=== PATIENT | female | born 1935 | race Caucasian/White ===

== ENCOUNTER 2017-05-04 08:19 | Inpatient (IN) | payer MEDICARE, BC ==
[2017-05-04] MEDS: NS 0.9% 1000 ML* 2,000 ML IV ONE ×2 (09:44→11:05)
--- NOTE | 2017-05-04 09:53 | RAD ---
HISTORY: Chest pain, pneumonia, CHF COMPARISONS: February 26, 2009 VIEWS:1: Single frontal portable view of the chest at 9:50 AM FINDINGS: LINES AND TUBES: None. CARDIOMEDIASTINAL SILHOUETTE: The cardiomediastinal silhouette is normal for portable technique. PLEURA: The costophrenic angles are sharp. No pleural abnormalities are noted. LUNG PARENCHYMA: The lungs are clear. ABDOMEN: The upper abdomen is clear. There is no subphrenic gas. BONES AND SOFT TISSUES: No bone or soft tissue abnormalities are noted. IMPRESSION: NO ACTIVE CARDIOPULMONARY DISEASE.
[2017-05-04 09:56] LABS: Hematocrit 31 % (35-47); Hemoglobin 10.6 g/dl (12.0-16.0); Mean Corpuscular HGB Conc 34 g/dl (31-36); Mean Corpuscular Hemoglobin 31 pg (27-31); Mean Corpuscular Volume 92 fL (80-97); Mean Platelet Volume 8 um3 (7.4-10.4); Red Blood Count 3.38 10^6/ul (4.0-5.4); Red Cell Distribution Width 13 % (10.5-15); White Blood Count 6.7 10^3/ul (3.5-10.8)
[2017-05-04 10:09] LABS: Albumin 3.4 g/dL (3.2-5.2); BUN/Creatinine Ratio 19.8 (8-20); Calcium 9.2 mg/dL (8.6-10.3); EGFR African American 87.1 (>60); EGFR Non-African American 67.7 (>60); Globulin 3.7 g/dL (2-4); Magnesium 1.7 mg/dL (1.9-2.7); Potassium 2.8 mmol/L (3.5-5.0); Total Bilirubin 1.8 mg/dL (0.2-1.0); Total Protein 7.1 g/dL (6.4-8.9)
[2017-05-04 10:12] LABS: Troponin I 0.07 ng/mL (<0.04)
[2017-05-04 10:39] LABS: TSH (Thyroid Stimulating Horm) 0.43 mcIU/mL (0.34-5.60)
[2017-05-04 10:48] LABS: Urine Bacteria Absent (Absent); Urine Bilirubin Negative (Negative); Urine Glucose 1+(50 mg/dL) (Negative); Urine Nitrite Negative (Negative)
--- NOTE | 2017-05-04 11:13 | ED ---
Cyril Olvera Salem, scribed for Sheldon Sanchez MD on 05/04/17 at 0917 . Complex/Multi-Sys Presentation - HPI Summary HPI Summary: Patient is a 82 y/o F who presents to the ED per EMS with multiple complaints since total right knee replacement 5 days ago. Pt was discharged from the hospital 3 days ago and since being home she reports nausea, diaphoresis, dizziness, lightheadedness, acid reflux, tachypnea, frequency (urinating every 3 hours), paleness, fever of 99.1F, intermittent headache, and near syncope. Pt denies SOB or abd pain. Daughter states that she has changed pts wound dressing since shes come home and she reports blistering around the wound and tenderness. PMHx of HTN, HLD, heart murmur, and irregular HR, but no A Fib. Pt has been on Xarelto for the past 5 days. - History Of Current Complaint Chief Complaint: EDNauseaVomitDiarrh Time Seen by Provider: 05/04/17 08:34 Hx Obtained From: Patient, Family/Suit Maker Onset/Duration: Gradual Onset, Lasting Days, Still Present Timing: Constant Severity Currently: Moderate Severity Initially: Moderate Location: Pain At: - Right knee. Aggravating Factor(s): Nothing. Alleviating Factor(s): Nothing. Associated Signs And Symptoms: Positive: Headache, Nausea, Fever - Low grade.. Negative: SOB - Allergies/Home Medications Allergies/Adverse Reactions: Allergies Allergy/AdvReac Type Severity Reaction Status Date / Time LUIGI Inhibitors Allergy Unknown Verified 05/17/15 13:44 Reaction Details Hydrochlorothiazide Allergy Unknown Verified 05/17/15 13:44 w/Triamterene Reaction [From Dyazide] Details Pravastatin Allergy Unknown Verified 05/17/15 13:44 Reaction Details PMH/Surg Hx/FS Hx/Imm Hx Endocrine/Hematology History: Denies: Hx Diabetes, Hx Anemia Cardiovascular History: Reports: Hx Angina, Hx Hypercholesterolemia, Hx Hypertension Denies: Hx Coronary Artery Disease, Hx Myocardial Infarction, Hx Valvular Heart Disease Respiratory History: Denies: Hx Asthma, Hx Chronic Obstructive Pulmonary Disease (COPD) GI History: Denies: Hx Jaundice - Surgical History Surgery Procedure, Year, and Place: hysterectomy. cataract surgery Infectious Disease History: No Infectious Disease History: Denies: Traveled Outside the [place] in Last 30 Days - Family History Known Family History: Positive: Cardiac Disease - Social History Alcohol Use: Occasionally Alcohol Amount: glass of wine Hx Substance Use: No Substance Use Type: Reports: None Hx Tobacco Use: No Smoking Status (MU): Never Smoked Tobacco Review of Systems Positive: Fever - Low-grade. , Skin Diaphoresis, Other - Paleness. Positive: Other - Tachypnea. . Negative: Shortness Of Breath Positive: Nausea, Other - Acid reflux. . Negative: Abdominal Pain Positive: frequency Positive: Other - Right knee surgery: pain and blistering around wound. Neurological: Other - Dizziness and lightheadedness. Positive: Headache, Syncope - Near syncope. All Other Systems Reviewed And Are Negative: Yes Physical Exam - Summary Physical Exam Summary: The patient is well-nourished, but mildly ill-appearing. The skin is pale and dry and skin color reflects adequate perfusion. HEENT: The head is normocephalic and atraumatic. The pupils are equal and reactive. The conjunctivae are clear and without drainage, but pale. Nares are patent and without drainage. Mouth reveals dry mucous membranes and the throat is without erythema and exudate. Neck is supple with full range of motion and non-tender. Respiratory: Chest is non-tender. Lungs are clear to auscultation and breath sounds are symmetrical and equal. No rales , rhonchi, or wheezes. Cardiovascular: Heart is regular rate and rhythm. There is no murmur or rub auscultated. There is no peripheral edema and distal pulses are symmetrical and equal. Abdomen: The abdomen is soft and non-tender. There are normal bowel sounds heard in all four quadrants. Musculoskeletal: There is no back pain noted. Extremities are non-tender with full range of motion. There is good capillary refill. Postoperative right knee exam reveals ecchymosis and edema. Wound exam reveals serosanguinous drainage, edema, and ecchymosis. Wound does not look infected. Neurological: Patient is alert and oriented to person, place and time. The patient has symmetrical motor strength in all four extremities. Psychiatric: The patient has an appropriate affect and does not exhibit any anxiety or depression. Triage Information Reviewed: Yes Vital Signs On Initial Exam: Initial Vitals Temp Pulse Resp BP Pulse Ox 97.9 F 76 20 128/68 100 05/04/17 08:25 05/04/17 08:25 05/04/17 08:25 05/04/17 08:25 05/04/17 08:25 Vital Signs Reviewed: Yes Diagnostics - Vital Signs Vital Signs Temp Pulse Resp BP Pulse Ox 05/04/17 08:25 97.9 F 76 20 128/68 100 - Laboratory Lab Results: Lab Results 05/04/17 05/04/17 05/04/17 Range/Units 09:35 09:35 09:35 WBC 6.7 (3.5-10.8) 10^3/ul RBC 3.38 L (4.0-5.4) 10^6/ul Hgb 10.6 L (12.0-16.0) g/dl Hct 31 L (35-47) % MCV 92 (80-97) fL MCH 31 (27-31) pg MCHC 34 (31-36) g/dl RDW 13 (10.5-15) % Plt Count 228 (150-450) 10^3/ul MPV 8 (7.4-10.4) um3 Neut % (Auto) 81.1 (38-83) % Lymph % (Auto) 10.7 L (25-47) % [place] % (Auto) 7.7 (1-9) % Eos % (Auto) 0.1 (0-6) % Baso % (Auto) 0.4 (0-2) % Absolute Neuts (auto) 5.5 (1.5-7.7) 10^3/ul Absolute Lymphs (auto) 0.7 L (1.0-4.8) 10^3/ul Absolute Monos (auto) 0.5 (0-0.8) 10^3/ul Absolute Eos (auto) 0 (0-0.6) 10^3/ul Absolute Basos (auto) 0 (0-0.2) 10^3/ul Absolute Nucleated RBC 0 10^3/ul Nucleated RBC % 0 INR (Anticoag Therapy) 1.14 H (0.89-1.11) APTT 25.1 L (26.0-36.3) seconds Sodium 138 (133-145) mmol/L Potassium 2.8 L (3.5-5.0) mmol/L Chloride 103 (101-111) mmol/L Carbon Dioxide 26 (22-32) mmol/L Anion Gap 9 (2-11) mmol/L BUN 16 (6-24) mg/dL Creatinine 0.81 (0.51-0.95) mg/dL Est GFR ( Amer) 87.1 (>60) Est GFR (Non-Af Amer) 67.7 (>60) BUN/Creatinine Ratio 19.8 (8-20) Glucose 154 H (70-100) mg/dL Lactic Acid (0.5-2.0) mmol/L Calcium 9.2 (8.6-10.3) mg/dL Magnesium 1.7 L (1.9-2.7) mg/dL Total Bilirubin 1.80 H (0.2-1.0) mg/dL AST 31 (13-39) U/L ALT 26 (7-52) U/L Alkaline Phosphatase 47 (34-104) U/L Troponin I 0.07 H* (<0.04) ng/mL B-Natriuretic Peptide ( - 100) pg/mL Total Protein 7.1 (6.4-8.9) g/dL Albumin 3.4 (3.2-5.2) g/dL Globulin 3.7 (2-4) g/dL Albumin/Globulin Ratio 0.9 L (1-3) TSH 0.43 (0.34-5.60) mcIU/mL Urine Color Urine Appearance Urine pH (5-9) Ur Specific [place] (1.010-1.030) Urine Protein (Negative) Urine Ketones (Negative) Urine Blood (Negative) Urine Nitrate (Negative) Urine Bilirubin (Negative) Urine Urobilinogen (Negative) Ur Leukocyte Esterase (Negative) Urine WBC (Auto) (Absent) Urine RBC (Auto) (Absent) Ur Squamous Epith Cells (Absent) Urine Bacteria (Absent) Urine Glucose (Negative) Blood Type Antibody Screen 05/04/17 05/04/17 05/04/17 Range/Units 09:35 09:35 09:35 WBC (3.5-10.8) 10^3/ul RBC (4.0-5.4) 10^6/ul Hgb (12.0-16.0) g/dl Hct (35-47) % MCV (80-97) fL MCH (27-31) pg MCHC (31-36) g/dl RDW (10.5-15) % Plt Count (150-450) 10^3/ul MPV (7.4-10.4) um3 Neut % (Auto) (38-83) % Lymph % (Auto) (25-47) % Nome % (Auto) (1-9) % Eos % (Auto) (0-6) % Baso % (Auto) (0-2) % Absolute Neuts (auto) (1.5-7.7) 10^3/ul Absolute Lymphs (auto) (1.0-4.8) 10^3/ul Absolute Monos (auto) (0-0.8) 10^3/ul Absolute Eos (auto) (0-0.6) 10^3/ul Absolute Basos (auto) (0-0.2) 10^3/ul Absolute Nucleated RBC 10^3/ul Nucleated RBC % INR (Anticoag Therapy) (0.89-1.11) APTT (26.0-36.3) seconds Sodium (133-145) mmol/L Potassium (3.5-5.0) mmol/L Chloride (101-111) mmol/L Carbon Dioxide (22-32) mmol/L Anion Gap (2-11) mmol/L BUN (6-24) mg/dL Creatinine (0.51-0.95) mg/dL Est GFR ( Amer) (>60) Est GFR (Non-Af Amer) (>60) BUN/Creatinine Ratio (8-20) Glucose (70-100) mg/dL Lactic Acid 1.3 (0.5-2.0) mmol/L Calcium (8.6-10.3) mg/dL Magnesium (1.9-2.7) mg/dL Total Bilirubin (0.2-1.0) mg/dL AST (13-39) U/L ALT (7-52) U/L Alkaline Phosphatase (34-104) U/L Troponin I (<0.04) ng/mL B-Natriuretic Peptide 324 H ( - 100) pg/mL Total Protein (6.4-8.9) g/dL Albumin (3.2-5.2) g/dL Globulin (2-4) g/dL Albumin/Globulin Ratio (1-3) TSH (0.34-5.60) mcIU/mL Urine Color Urine Appearance Urine pH (5-9) Ur Specific [place] (1.010-1.030) Urine Protein (Negative) Urine Ketones (Negative) Urine Blood (Negative) Urine Nitrate (Negative) Urine Bilirubin (Negative) Urine Urobilinogen (Negative) Ur Leukocyte Esterase (Negative) Urine WBC (Auto) (Absent) Urine RBC (Auto) (Absent) Ur Squamous Epith Cells (Absent) Urine Bacteria (Absent) Urine Glucose (Negative) Blood Type O Positive Antibody Screen Pending 05/04/17 Range/Units 10:26 WBC (3.5-10.8) 10^3/ul RBC (4.0-5.4) 10^6/ul Hgb (12.0-16.0) g/dl Hct (35-47) % MCV (80-97) fL MCH (27-31) pg MCHC (31-36) g/dl RDW (10.5-15) % Plt Count (150-450) 10^3/ul MPV (7.4-10.4) um3 Neut % (Auto) (38-83) % Lymph % (Auto) (25-47) % Nome % (Auto) (1-9) % Eos % (Auto) (0-6) % Baso % (Auto) (0-2) % Absolute Neuts (auto) (1.5-7.7) 10^3/ul Absolute Lymphs (auto) (1.0-4.8) 10^3/ul Absolute Monos (auto) (0-0.8) 10^3/ul Absolute Eos (auto) (0-0.6) 10^3/ul Absolute Basos (auto) (0-0.2) 10^3/ul Absolute Nucleated RBC 10^3/ul Nucleated RBC % INR (Anticoag Therapy) (0.89-1.11) APTT (26.0-36.3) seconds Sodium (133-145) mmol/L Potassium (3.5-5.0) mmol/L Chloride (101-111) mmol/L Carbon Dioxide (22-32) mmol/L Anion Gap (2-11) mmol/L BUN (6-24) mg/dL Creatinine (0.51-0.95) mg/dL Est GFR ( Amer) (>60) Est GFR (Non-Af Amer) (>60) BUN/Creatinine Ratio (8-20) Glucose (70-100) mg/dL Lactic Acid (0.5-2.0) mmol/L Calcium (8.6-10.3) mg/dL Magnesium (1.9-2.7) mg/dL Total Bilirubin (0.2-1.0) mg/dL AST (13-39) U/L ALT (7-52) U/L Alkaline Phosphatase (34-104) U/L Troponin I (<0.04) ng/mL B-Natriuretic Peptide ( - 100) pg/mL Total Protein (6.4-8.9) g/dL Albumin (3.2-5.2) g/dL Globulin (2-4) g/dL Albumin/Globulin Ratio (1-3) TSH (0.34-5.60) mcIU/mL Urine Color Yellow Urine Appearance Cloudy Urine pH 8.0 (5-9) Ur Specific [place] 1.010 (1.010-1.030) Urine Protein 2+(100 mg/dl) H (Negative) Urine Ketones Trace H (Negative) Urine Blood Negative (Negative) Urine Nitrate Negative (Negative) Urine Bilirubin Negative (Negative) Urine Urobilinogen Negative (Negative) Ur Leukocyte Esterase Negative (Negative) Urine WBC (Auto) 1+(6-10/hpf) H (Absent) Urine RBC (Auto) Trace(0-2/hpf) (Absent) Ur Squamous Epith Cells Present H (Absent) Urine Bacteria Absent (Absent) Urine Glucose 1+(50 mg/dl) H (Negative) Blood Type Antibody Screen Result Diagrams: 05/04/17 09:35 05/04/17 09:35 Diagnostic Studies Comment: Trop: 0.07 Lab Statement: Any lab studies that have been ordered have been reviewed, and results considered in the medical decision making process. - Radiology CXR Radiology Interpretation Completed By: Radiologist - IMPRESSION: NO ACTIVE CARDIOPULMONARY DISEASE. - EKG 0937 EKG Interpretation: NSR @ 83bpm with PAC's. Nml axis. Non-specific ST changes. Re-Evaluation - Re-Evaluation First Eval Re-Evaluation Time: 10:38 Comment: Feeling better. Discussed labs. Will call hospitalist about admission. She is agreeable. Complex Multi-Symp Course/Dx Course Of Treatment: 82 y/o F presents with multiple complaints since total right knee replacement 5 days ago. Pt was discharged from the hospital 3 days ago and since being home she reports nausea, diaphoresis, dizziness, lightheadedness, acid reflux, tachypnea, frequency (urinating every 3 hours), paleness, fever of 99.1F, intermittent headache, and near syncope. Pt denies SOB or abd pain. Pt received fluids in ED course. CXR shows, per radiology, IMPRESSION: NO ACTIVE CARDIOPULMONARY DISEASE. EKG shows NSR @ 83bpm with PAC' s. Nml axis. Non-specific ST changes. Discussed case with Dr. Truong. Pt will be admitted. - Diagnoses Differential Diagnoses/HQI/PQRI: Cardiac Ischemia, Metabolic Abnormality, Urinary Tract Infection, Other - pulmonary embolism Provider Diagnoses: Dizziness, Weakness, Elevated troponin - Physician Notifications Discussed Care Of Patient With: Barbara Truong Time Discussed With Above Provider: 10:55 Instructed by Provider To: Admit As Inpatient Admit/Transition Orders Completed By ED Provider: Yes Discharge - Discharge Plan Condition: Stable Disposition: ADMITTED TO [facility] Referrals: Lilli Adams MD [Primary Care Provider] - The documentation as recorded by the Cyril green Salem accurately reflects the service I personally performed and the decisions made by , Sheldon Sanchez MD.
[2017-05-04] MEDS ORDERED: Acetaminophen TAB* 325 MG PO PRN (11:28)
[2017-05-04] MEDS ORDERED: Ondansetron INJ* 2 MG/ML VIAL IV PRN (11:28)
[2017-05-04] MEDS ORDERED: NS 0.9% 1000 ML* 1,000 ML IV SCH (11:30)
[2017-05-04] MEDS ORDERED: Potassium Chlor TAB* 20 MEQ TAB.ER PO ONE (11:39)
[2017-05-04] MEDS ORDERED: Magnesium Sulfate 2 GM IV* 2 GM/50 ML BAG IVPB ONE (11:39)
[2017-05-04] MEDS ORDERED: Iohexol 350* (CONTRAST) 500 ML MDV IV ONE (11:48)
--- NOTE | 2017-05-04 12:21 | RAD ---
HISTORY: Atrial fibrillation, elevated troponin, COMPARISONS: Thyroid ultrasound dated May 09, 2016 TECHNIQUE: Multiple contiguous axial CT scans of the chest were obtained after the administration of nonionic intravenous contrast, timed to the pulmonary arterial phase of contrast enhancement.. Coronal and sagittal multiplanar reformations are also submitted for review. FINDINGS: NECK AND THYROID: The thyroid is heterogeneous with multiple nodules. CHEST WALL: There is no lower cervical, axillary, or supraclavicular lymphadenopathy by size criteria. HEART AND PERICARDIUM: The heart is unremarkable. AORTA AND PULMONARY VASCULATURE: There is no pulmonary arterial filling defect to suggest pulmonary embolism. There is no linear filling defect within the aorta to suggest aortic dissection. MEDIASTINUM: There is no mediastinal lymphadenopathy by size criteria. MELLISA: There is no hilar lymphadenopathy by size criteria. AIRWAY AND ESOPHAGUS: The airway is unremarkable, without endobronchial filling defect. The esophagus is grossly normal. LUNG PARENCHYMA: The lungs are clear. PLEURA: No pleural abnormalities are noted. UPPER ABDOMEN: There are parapelvic right renal cyst versus right hydronephrosis. This is incompletely included within the [id number] the current examination. Gallstones are noted. BONES AND SOFT TISSUES: No bone or soft tissue abnormalities are noted. OTHER: None. IMPRESSION: 1. NO PULMONARY ARTERIAL FILLING DEFECT TO SUGGEST PULMONARY EMBOLISM. 2. 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 3. THERE ARE PARAPELVIC CYSTS VERSUS RIGHT HYDRONEPHROSIS. THIS IS INCOMPLETELY EVALUATED ON THE CURRENT EXAMINATION. 4. CHOLELITHIASIS.
[2017-05-04] MEDS: Diltiazem TAB* 30 MG PO SCH ×3 (12:30→17:05)
[2017-05-04] MEDS: Rivaroxaban TAB(*) 20 MG TAB PO SCH (15:13)
[2017-05-04] MEDS: KCL 10 MEQ/50 ML IVPREMIX* 10 MEQ/50 ML BAG IV SCH (15:16)
[2017-05-04] MEDS: CMC:Rosuvastatin (NF) 5 MG TAB PO SCH (17:05)
--- NOTE | 2017-05-04 21:59 | RAD ---
HISTORY: Right leg pain and edema COMPARISONS: None relevant TECHNIQUE: Multiple transverse and longitudinal ultrasound images were obtained of the right lower extremity from the level of the common femoral vein inferiorly through to the infrapopliteal veins using grayscale, color Doppler, and spectral Doppler imaging with and without compression and with augmentation. Comparison images were obtained of the contralateral common femoral vein. FINDINGS: VEINS: The venous system of the right lower extremity is compressible throughout its course, with normal flow on color Doppler imaging and normal response to augmentation on spectral Doppler imaging. SOFT TISSUES: Unremarkable. OTHER FINDINGS: None. IMPRESSION: NO RIGHT LOWER EXTREMITY DEEP VEIN THROMBOSIS
--- NOTE | 2017-05-04 22:00 | RAD ---
HISTORY: Hydronephrosis COMPARISONS: CT dated May 04, 2017 TECHNIQUE: Multiple transverse and longitudinal ultrasound images were obtained of the kidneys using grayscale and color Doppler imaging. FINDINGS: RIGHT KIDNEY: There is a parapelvic cyst measuring 5.5 x 4 x 3.5 cm. There is no hydronephrosis or nephrolithiasis. The right kidney measures 10.5 x 5.7 x 5.2 cm. LEFT KIDNEY: The left kidney is normal in shape, size, contour, and echogenicity. There is no hydronephrosis or nephrolithiasis. The left kidney measures 11.4 x 4.6 x 5 cm. BLADDER: No images are submitted of the bladder. AORTA AND IVC: No images are submitted of the vasculature. RETROPERITONEUM: Unremarkable. OTHER: None. IMPRESSION: PARAPELVIC CYST ON THE RIGHT. NO HYDRONEPHROSIS.
--- NOTE | 2017-05-05 00:39 | HP ---
CC: Dr. Adams; Dr. Rand* HISTORY AND PHYSICAL: DATE OF ADMISSION: 05/04/17 PRIMARY CARE PHYSICIAN: Dr. Adams. ATTENDING PHYSICIAN WHILE IN THE HOSPITAL: Barbara Truong DO* (report is being dictated by Nav Redman NP). CONSULTING BRAIDED RUG MAKER: Dr. Rand. CHIEF COMPLAINT: 1. Frequency. 2. Urgency. 3. Indigestion. 4. Not feeling well. 5. Near syncope. HISTORY OF PRESENT ILLNESS: Mrs. Marshall is an 82-year-old female patient. She carries a history of hypertension, hyperlipidemia and dementia. She came in today stating that the last couple of days she has been having some fullness in her chest. She thought it may be with indigestion, she would pound on her chest and then she would burp and feel better and she was taking Tums every day. She has had a decreased appetite in the last 24 to 48 hours and it was noted last night that she kept having to get up to urinate. She was having urinary frequency and urgency. In addition to this, the daughter states that the patient was complaining feeling dizzy, feeling like she was going to faint and pass out. They have also noted that when she was walking, she appeared to be tachypneic. The patient of note did have recent orthopedic surgery. She had a knee replacement on 04/29/17. She says that the knee has been doing well. There has been no pain there. She says it is swollen and it does appear to have quite a bit of bruising but she says she has been moving it well. She has been doing her exercises and stretches, which she has been prescribed and at times she does admit to having this pressure in the chest and she has been having some palpitations off and on. She came into the ER today because of these concerns and was evaluated. It was noted that her troponin was mildly elevated. In addition to this, it was noted that she appeared to be in AFib. The patient at times too here was noted to have decreased O2 saturations, so because of these findings, hospitalist service was asked to evaluate to admission and it was noted that she had an elevated troponin. There was concern because of the elevated troponin and looks like a question of new onset atrial fibrillation, so the hospitalist service was asked to evaluate for admission. PAST MEDICAL HISTORY: Significant for: 1. Hypertension. 2. Hyperlipidemia. 3. Dementia. PAST SURGICAL HISTORY: 1. She has had a right total knee replacement on 04/29/17. 2. Hysterectomy. MEDICATIONS: The home meds according to the list that she provided includes: 1. Amlodipine 10 mg daily. 2. Crestor 5 mg daily. 3. Xarelto 10 mg p.o. daily. 4. Potassium 30 mEq p.o. daily. 5. Prilosec 20 mg daily. 6. Magnesium 400 mg p.o. daily. 7. Cozaar 100 mg p.o. daily. 8. Lexapro 10 mg daily. 9. Aricept 10 mg daily. 10. Colace 100 mg p.o. b.i.d. 11. Calcium carbonate 1 tablet p.o. daily. ALLERGIES: To medications include: 1. LUIGI INHIBITORS. 2. DYAZIDE. 3. PRAVASTATIN. FAMILY HISTORY: Mother had a history of cancer. Father had a history of CHF. SOCIAL HISTORY: She does not smoke. She rarely drinks alcohol. Surrogate decision maker is her daughter and her . REVIEW OF SYSTEMS: There is no documented fever. She denied any significant weight change. There was no double vision. No ear discharge. There is no rhinorrhea, no sore throat. No thyroid enlargement. She does admit to having some chest fullness. There was no abdominal pain. There was nausea but no vomiting. No dysuria, frequency. There was frequency and urgency but no dysuria. No loss of consciousness, no pruritus and no skin ulcerations. Review of 14 systems completed, all others negative. PHYSICAL EXAMINATION GENERAL: At this time, Mrs. Marshall is an 82-year-old female patient. She is sitting in the ER stretcher. She does not appear to be in any acute distress. VITAL SIGNS: Blood pressure 161/65, pulse 85, respirations were 18. Her O2 sat on room air appeared to be 96%, but then at times it was right around 90%. Temperature 97.9. HEENT: Head is atraumatic, normocephalic. Eyes: EOMs intact. Sclerae anicteric and not pale. Throat: Oral mucosa appears to be moist. No oropharyngeal erythema. NECK: Supple. HEART: Heart sounds S1, S2. Irregularly irregular rate. No murmurs, rubs or gallops. LUNGS: Clear to auscultation bilaterally. No wheezes, rales or rhonchi. ABDOMEN: Soft, it was flat. Nontender. Bowel sounds present. EXTREMITIES: Pulses were 2+ throughout. She is able to move the right lower extremity, 5/5 strength. Distal CSM checks are intact. She does have a significant amount of ecchymosis noted to that lower extremity and there is some calf swelling as well. NEUROLOGIC: She is awake, alert, oriented x3. Tongue midline. Nail Machine Operator were equal. She had no gross focal deficits. SKIN: Intact with the exception she does have an incision to the right knee which is covered with a dressing and appears to be clean, dry and intact. There was some serosanguineous type fluid but no purulent discharge was noted. LABORATORY DATA/DIAGNOSTIC STUDIES: Today revealed WBC 6.7, RBC 3.38, hemoglobin 10.6, hematocrit 31 and platelet count 228,000. The INR was 1.14. The PTT was 25.1. The sodium was 138, potassium was 2.8, chloride 103, bicarb was 26, BUN was 16, creatinine 0.81, glucose 154, lactic 1.3, calcium 9.2, mag 1.7, total bili 1.8, AST 31, ALT 26, alk phos 47. Troponin was 0.07. BNP of 324. The TSH was 0.43. The urine showed 2+ protein, trace ketones, 1+ wbc, present squamous epithelial cells, 1+ glucose. She did have an EKG obtained today, to me it looks like atrial fibrillation with rate of 107. No ST elevations or T wave inversions were noted. She had a chest x-ray obtained today , showed no active cardiopulmonary disease. Old medical records were reviewed. ASSESSMENT/PLAN: Mrs. Marshall is an 82-year-old female patient coming into the ER today with complaints of chest fullness, indigestion, and just not feeling well and having episodes of almost feeling like she was going to faint. She came into the ER, was evaluated, there was concern for these symptoms because of her recent surgery and then the fact she was found to have an elevated troponin. She will be admitted under inpatient status for: 1. Atrial fibrillation: Again, at this point it appears as though she does appear to be in atrial fibrillation. I am going to go ahead and put her on diltiazem for rate control 30 q.6 h. with hold parameters. In addition to this , we will go ahead and put her on Xarelto, check an echo. I did touch base with Dr. Rand. I am also going to do CTA of the chest to rule out new onset pulmonary embolism. She was on Xarelto but it was 10 mg for preventative blood clots, but I think we need to take this off the table, so that I could do a CTA. I am also going to ultrasound that lower extremities to make sure there is not any clot there and we will continue to follow her closely. I did touch base with the orthopedist meat products demonstrator to perform the procedure and they will be in contact with the orthopedist that actually performed the procedure to alert them of what is going on. 2. Hypertension: Continue medications prescribed. 3. Hyperlipidemia: Continue statin therapy. 4. Dementia: Continue supportive care. 5. DVT prophylaxis: She is on Xarelto, I did up her dose to 20 mg daily. 6. Code status: Full code. 7. Fluids, electrolytes, nutrition: She can have a heart-healthy diet. TIME SPENT: Time spent on the admission, 60 minutes, greater than half the time was spent [id number] with the patient obtaining my history and physical; other half the time spent going over plan of care with the patient and implementing plan of care. I did discuss the plan of care with my attending, Dr. Truong, she is in agreement. NAV REDMAN, ELMER [id number]/CPS #: [id number] JASON
[2017-05-05] MEDS: KCL 10 MEQ/50 ML IVPREMIX* 10 MEQ/50 ML BAG IV SCH ×2 (01:00→02:30)
[2017-05-05] MEDS: Diltiazem TAB* 30 MG PO SCH ×4 (01:05→17:18)
[2017-05-05] MEDS: diPHENhydraMINE PO* 25 MG PO PRN (03:16)
[2017-05-05 08:30] LABS: Hematocrit 29 % (35-47); Hemoglobin 9.8 g/dl (12.0-16.0); Mean Corpuscular HGB Conc 33 g/dl (31-36); Mean Corpuscular Hemoglobin 31 pg (27-31); Mean Corpuscular Volume 94 fL (80-97); Mean Platelet Volume 7 um3 (7.4-10.4); Red Blood Count 3.14 10^6/ul (4.0-5.4); Red Cell Distribution Width 13 % (10.5-15); White Blood Count 6.3 10^3/ul (3.5-10.8)
[2017-05-05] MEDS: Donepezil TAB* 5 MG PO SCH (08:42)
[2017-05-05] MEDS: Omeprazole CAP* 20 MG PO SCH (08:42)
[2017-05-05] MEDS: Rivaroxaban TAB(*) 20 MG TAB PO SCH (08:42)
[2017-05-05] MEDS: Losartan TAB* 25 MG PO SCH (08:42)
[2017-05-05] MEDS: CMC:Escitalopram (NF) 10 MG TAB PO SCH (08:42)
[2017-05-05 09:05] LABS: BUN/Creatinine Ratio 19.7 (8-20); Calcium 8.6 mg/dL (8.6-10.3); EGFR African American 120.8 (>60); EGFR Non-African American 93.9 (>60); Potassium 3.2 mmol/L (3.5-5.0)
[2017-05-05] MEDS: KCL premix 10MEQ/50 ML x 2 BAGS IV SCH (09:15)
[2017-05-05] MEDS: Potassium Chlor TAB* 20 MEQ TAB.ER PO SCH ×2 (13:09→14:21)
[2017-05-05 13:14] LABS: Magnesium 1.8 mg/dL (1.9-2.7)
[2017-05-05] MEDS ORDERED: Magnesium Sulfate 2 GM IV* 2 GM/50 ML BAG IVPB ONE (13:30)
--- NOTE | 2017-05-05 14:33 | PN ---
Subjective Date of Service: 05/05/17 Interval History: Patient seen this afternoon with daughter at bedside who provided some of the history. Patient says she may be feeling a bit better today, urinary frequency seems to have slowed. No dysuria. Over the past few days has had weakness, nausea, urinary frequency, decrease PO intake, occasional dry mouth and slurred speech. Tmax at home 99F. Knee has not been bothering her at all, she has been ambulating very well on it. Has been off of narcotic pain medications since . Family History: Unchanged from Admission Social History: Unchanged from Admission Past Medical History: Unchanged from Admission Objective Active Medications: Acetaminophen (Tylenol Tab*) 650 mg PO Q4H PRN Diltiazem HCl (Cardizem Tab*) 30 mg PO Q6HR COREEN Diphenhydramine HCl (Benadryl Po*) 25 mg PO BEDTIME PRN Donepezil HCl (Aricept Tab*) 10 mg PO DAILY COREEN Escitalopram Oxalate (Lexapro (Nf)) 10 mg PO DAILY COREEN Sodium Chloride (Ns 0.9% 1000 Ml*) 1,000 mls @ 100 mls/hr IV PER RATE COREEN Magnesium Sulfate (Magnesium Sulfate 2 Gm Iv*) 2 gm in 50 mls @ 50 mls/hr IVPB ONCE ONE Losartan Potassium (Cozaar Tab*) 100 mg PO DAILY COREEN Omeprazole (Prilosec Cap*) 20 mg PO DAILY COREEN Ondansetron HCl (Zofran Inj*) 4 mg IV Q6H PRN Potassium Chloride (Klor Con Er Tab*) 40 meq PO Q2H COREEN Rivaroxaban (Xarelto (*)) 20 mg PO DAILY COREEN Rosuvastatin Calcium (Crestor (Nf)) 5 mg PO 1700 [facility] Vital Signs 05/04/17 05/04/17 05/04/17 15:18 15:52 20:00 Temperature 98.1 F Pulse Rate 65 Respiratory 18 20 Rate Blood Pressure 137/44 (mmHg) O2 Sat by Pulse 97 99 Oximetry 05/05/17 12:02 Temperature 98.4 F Pulse Rate 67 Respiratory 16 Rate Blood Pressure 146/48 (mmHg) O2 Sat by Pulse Oximetry Oxygen Devices in Use Now: None Appearance: Elderly, F, laying in chair in NAD Eyes: No Scleral Icterus Ears/Nose/Mouth/Throat: Mucous Membranes Moist Neck: NL Appearance and Movements; NL JVP Respiratory: Symmetrical Chest Expansion and Respiratory Effort, Clear to Auscultation Cardiovascular: NL Sounds; No Murmurs; No JVD, RRR Abdominal: NL Sounds; No Tenderness; No Distention Lymphatic: No Cervical Adenopathy Extremities: - - Some RLE edema Skin: - - Significant ecchymoses from the R knee tracking up the thigh and down the calf, dressing place with some slight serosanguinous drainage Neurological: Alert and Oriented x 3, NL Sensation, NL Muscle Strength and Tone Result Diagrams: 05/05/17 08:16 05/05/17 08:16 Additional Lab and Data: Assess/Plan/Problems-Billing Assessment: Weakness, nausea, urinary frequency in an 82 yo F with hx of HTN, HLD, mild dementia and recent R TKA found to have elevated troponin and atrial arrhythmia - Patient Problems (1) Atrial arrhythmia Current Visit: Yes Comment: Appreciate Cardiology consult. Dr. Rand does not feel that this is AFib as p waves are present on EKGs, often with varying morphologies. Troponins trending down. Echo cancelled as per Dr. Rand. Will get NST in the AM. Continue diltiazem for now. Continue increased Xarelto. No evidence of PE. (2) Weakness Current Visit: Yes Comment: with other vague symptoms. Etiolgy is not clear at this time. May or may not be related to the heart. UA shows no signs of infection, lungs are clear. Seem to be improving, will continue to monitor for now. Replete electrolytes, will check a phosphorus. (3) HTN (hypertension) Current Visit: Yes Comment: Continue Amlodipine and Losartan in addition to Diltiazem. (4) HLD (hyperlipidemia) Current Visit: Yes Comment: Continue statin (5) Dementia Current Visit: Yes Comment: Continue Aricept (6) DVT prophylaxis Current Visit: Yes Comment: Xarelto Status and Disposition: Inpatient for further cardiac work-up
[2017-05-05 14:48] LABS: Phosphorus 2.7 mg/dL (2.5-5.0)
[2017-05-05] MEDS: CMC:Rosuvastatin (NF) 5 MG TAB PO SCH (16:39)
[2017-05-05] MEDS: amLODIPine TAB* 5 MG PO SCH (16:40)
--- NOTE | 2017-05-05 19:21 | CONS ---
CC: Dr. Adams CARDIOLOGY CONSULTATION: DATE OF CONSULT: 05/05/17 INDICATION FOR CONSULTATION: Chest pain, abnormal troponin. HISTORY OF PRESENT ILLNESS: Patient is an 82-year-old female who recently had a knee replacement [facility] 6 days ago. Patient and her daughter state that patient did well for a couple of days after her surgery; however, on night into Saturday morning, patient began with decreased appetite, increased indigestion type symptoms, some mild chest pain, increased urination, and overall just fee ling poorly. She ultimately came to the hospital on Saturday because of these symptoms. Patient den ied any palpitations, she denied any episodes of lightheadedness, dizziness, or syncope. Her chest pain was sort of mild in the center of her chest that did not radiate anywhere. It was associated w ith mild indigestion. Patient has not been terribly active because of her knee surgery 6 days ago. On arrival to the emergency room, patient was tachycardic, with normal blood pressure. Her EKG at that time was interpreted as atrial fibrillation. I think it is multifocal atrial rhythm. Her subs equent EKGs showed wandering atrial pacer, but no clear evidence of atrial fibrillation. In the [facility] room, patient underwent a CTA of her chest to rule out pulmonary embolism. This was negative . Patient was found to have a low potassium level and low magnesium levels. Patient was admitted t o the hospital overnight. Again, her EKG this morning showed wandering atrial pacer, no ischemic EK G changes. Patient's initial troponin level was 0.06 and it lillie to 0.08. In speaking with the pat ient today, she really has no significant symptoms. Her indigestion has resolved. Overall, she just feels weak. PAST MEDICAL HISTORY: Significant for hypertension, hyperlipidemia, mild dementia, history of parox ysmal supraventricular tachycardia. OUTPATIENT MEDICATIONS: 1. Amlodipine 10 mg a day. 2. Crestor 5 mg a day. 3. Xarelto 10 mg a day which was just started after her knee surgery. 4. Potassium as directed. 5. Prilosec 20 mg a day. 6. Magnesium 400 mg a day. 7. Cozaar 100 mg a day. 8. Lexapro 10 mg a day. 9. Aricept 10 mg a day. 10. Colace 100 mg b.i.d. ALLERGIES: She is intolerant of LUIGI INHIBITORS and DYAZIDE. FAMILY HISTORY: Her mother had a history of cancer. Father of congestive heart failure. SOCIAL HISTORY: She lives with her . Her daughter is her surrogate decision maker. She den ies tobacco or alcohol use. PHYSICAL EXAM: Height is 5 feet 5 inches. Weight is 139 pounds. Temperature 98.1, heart rate is 7 2, respiratory rate is 16, oxygen saturation 99% on 2 L, blood pressure 149/66. Sclerae anicteric. Oropharynx is pink without erythema. Carotids are 2+ without bruits. JVD is normal. Thyroid is no rmal. Cardiac: S1, S2 with a 1/6 systolic ejection murmur. No diastolic murmur. Lungs are clear t o auscultation. There is no dullness to percussion. Abdomen is soft, nontender, nondistended with normoactive bowel sounds. Extremities: Left lower extremity is normal. There is normal pulses. H er right lower extremity has significant ecchymosis from her knee surgery. There is 2+ pulses throu ghout. Patient is awake and alert. LABORATORY STUDIES: White count 6.3, hemoglobin 10, hematocrit 29, platelet count 248. Chemistries : Potassium of 3.2. BUN and creatinine are normal. Troponins are as described above. BNP was 324. TSH was normal at 0.43. IMPRESSION: This is an 82-year-old female who is 6 days status post right knee surgery. She was ad mitted to the hospital with nausea, indigestion, chest pain. Patient was diagnosed with possible atrial fibrillation. I reviewed the EKGs myself. I do not see a ny clear evidence of atrial fibrillation. She clearly has wandering atrial pacer and multifocal atr ial tachycardia. At this point, I am not exactly sure patient has any significant cardiac issues going on. She does have elevated troponin levels which are of concern. Patient will undergo an echocardiogram and a chemical nuclear stress test tomorrow for further evalu ation. At this point, I do not think any medication changes are necessary. Patient will continue o n Xarelto at 20 mg a day for now. Patient's potassium and magnesium levels will be replaced. This case was discussed with Dr. Alok Ruano. [id number]/[facility] #: [id number]
[2017-05-06] MEDS: Diltiazem TAB* 30 MG PO SCH ×3 (00:46→13:18)
[2017-05-06] MEDS: diPHENhydraMINE PO* 25 MG PO PRN (03:25)
--- NOTE | 2017-05-06 09:04 | ECHO ---
Patient: BRETT CHAMPION [facility] Rec#: [id number] : 1935 Date: 05/06/2017 Age: 82y Height: 165.1 cm / 65.0 in Weight: 63.5 kg / 140.0 lbs Sex: F BSA: 1.7 Room#: 444 Admit Date#: 05/04/2017 Type: Inpatient Referring: Nav Redman NP Reading: Jerald Rand MD Rolloff Driver: Joana Crain RDCS CC: Lilli Adams MD Transthoracic Echocardiogram Indication: A-fib BP: 137/53 HR: 81 Rhythm: A-Fib Findings History: HTN,HLD,dementia. Technical Comments: The study quality is good. Completed at 0834. Left Ventricle: The left ventricular chamber size is decreased. Septal wall hypertrophy is observed. Global left ventricular wall motion and contractility are within normal limits. There is normal left ventricular systolic function. The estimated ejection fraction is 55-60%. The assessment of diastolic function is non-diagnostic. Left Atrium: The left atrial chamber size is normal. Right Ventricle: The right ventricular cavity size is normal. The right ventricular global systolic function is normal. Right Atrium: The right atrial cavity size is normal. Aortic Valve: The aortic valve is trileaflet. There is evidence of aortic sclerosis without stenosis. There is mild aortic regurgitation. There is borderline aortic stenosis present. Mitral Valve: The mitral valve leaflets are mildly thickened. There is mild mitral regurgitation. The mitral regurgitant jet is laterally directed. There is no evidence of mitral stenosis. Tricuspid Valve: The tricuspid valve leaflets are normal. There is mild tricuspid regurgitation. There is evidence of mild to moderate pulmonary hypertension. There is no tricuspid stenosis. Pulmonic Valve: The pulmonic valve appears normal. There is no evidence of pulmonic regurgitation. There is no pulmonic stenosis. Pericardium: The pericardium appears normal. Aorta: There is no dilatation of the ascending aorta. There is no dilatation of the aortic arch. There is no dilation of the aortic root. Pulmonary Artery: The main pulmonary artery appears normal. Venous: The inferior vena cava appears normal in size. There is a greater than 50% respiratory change in the inferior vena cava dimension. Conclusions Global left ventricular wall motion and contractility are within normal limits. There is normal left ventricular systolic function. The estimated ejection fraction is 55-60%. The assessment of diastolic function is non-diagnostic. The right ventricular global systolic function is normal. There is mild aortic regurgitation. There is borderline aortic stenosis present. There is mild mitral regurgitation. There is mild tricuspid regurgitation. There is evidence of mild to moderate pulmonary hypertension. The pericardium appears normal. Measurements Name Value Normal Range RVIDd (AP) 2D 2.3 cm (0.9 - 2.6) RVDdMajor (2D) 2.3 cm (2.2 - 4.4) RAd ISD 4CH 4.7 cm (3.4 - 4.9) RA (A4C)W 3.6 cm (2.9 - 4.6) IVSd (2D) 1.3 cm (0.6 - 1) LVPWd (2D) 1 cm (0.6 - 1) LVIDd (2D) 3.2 cm (3.6 - 5.4) LVIDs (2D) 2.6 cm - LV FS (2D) 20 % (25 - 45) Aortic Annulus 1.4 cm (1.4 - 2.6) Ao root diameter (2D) 2.7 cm (2.1 - 3.5) Ascending Ao 2.3 cm (2.1 - 3.4) Aortic arch 1.9 cm (1.8 - 3.4) Descending Ao 0.7 cm - LA dimension (AP) 2D 3.3 cm (2.3 - 3.8) LAd ISD 4CH 6.1 cm (2.9 - 5.3) LA ISD 4CH W 4 cm (2.5 - 4.5) Name Value Normal Range LA ESV SP 4CH (A/L) 59 ml - LA ESV SP 2CH (A/L) 61 ml - LA ESV BP (A/L) 61 ml - LA ESV BP (A/L) index 36.02 ml/m2 - LA ESV SP 4CH (MOD) 55 ml - LA ESV SP 2CH (MOD) 59 ml - Name Value Normal Range MV E-wave Vmax 1.3 m/sec - MV deceleration time 175 msec - LV septal e' Vmax 0.09 m/sec - LV lateral e' Vmax 0.11 m/sec - LV E:e' septal ratio 14.44 ratio - LV E:e' lateral ratio 11.81 ratio - Name Value Normal Range AV Vmax 2.5 m/sec - AV VTI 54.3 cm - AV peak gradient 24 mmHg - AV mean gradient 11 mmHg - LVOT Vmax 1.2 m/sec - LVOT VTI 27.4 cm - LVOT peak gradient 6.21 mmHg - LVOT mean gradient 3.35 mmHg - SV LVOT 58 ml - AR PHT 548 msec - AR peak gradient 37.31 mmHg - Name Value Normal Range TR Vmax 3.3 m/sec - TR peak gradient 42 mmHg - RAP 3 mmHg - RVSP 45 mmHg - IVC diameter 1.7 cm - Name Value Normal Range PV Vmax 1 m/sec - PV peak gradient 4.07 mmHg -
[2017-05-06 09:14] LABS: BUN/Creatinine Ratio 20.8 (8-20); Calcium 8.8 mg/dL (8.6-10.3); EGFR African American 92.3 (>60); EGFR Non-African American 71.8 (>60); Potassium 3.6 mmol/L (3.5-5.0)
[2017-05-06 09:29] VITALS: BP 129/42
[2017-05-06] MEDS: Omeprazole CAP* 20 MG PO SCH (09:30)
[2017-05-06] MEDS: CMC:Escitalopram (NF) 10 MG TAB PO SCH (09:30)
[2017-05-06] MEDS: Losartan TAB* 25 MG PO SCH (09:30)
[2017-05-06] MEDS: amLODIPine TAB* 5 MG PO SCH (09:30)
[2017-05-06] MEDS: Rivaroxaban TAB(*) 20 MG TAB PO SCH (09:31)
[2017-05-06] MEDS: Donepezil TAB* 5 MG PO SCH (09:31)
[2017-05-06] MEDS ORDERED: Regadenoson* 0.4 MG/5 ML SYRINGE ONE (10:22)
[2017-05-06] MEDS ORDERED: Aminophylline IV* 25 MG/ML 10 ML VIAL ONE (10:22)
--- NOTE | 2017-05-06 12:37 | RAD ---
HISTORY: Chest pain, abnormal EKG COMPARISONS: December 21, 2013 TECHNIQUE: A 1 day stress/rest myocardial perfusion study was performed, with pharmacologic stress. The stress portion was monitored by Dr. Rand. Gated SPECT imaging was performed, with CT-based attenuation correction DOSE: Stress: Technetium 99m tetrofosmin, 25.66 millicuries, injected at 11:00 AM on May 06, 2017 Rest: Technetium 99m tetrofosmin, 10.72 millicuries, injected at 8:40 AM on May 06, 2017 Pharmacologic agent: Lexiscan FINDINGS: CARDIAC MONITORING: Nondiagnostic due to resting EKG abnormalities. EF: 77 % TID: 1.03 MOTION: Normal motion, with normal wall thickening. PERFUSION: There are no significant fixed or reversible perfusion defects. An apparent reversible defect on the axial images is felt to be an artifact of misregistration OTHER: None IMPRESSION: NO SIGNIFICANT FIXED OR REVERSIBLE PERFUSION DEFECTS. ASSESSMENT: LOW RISK. Based on imaging criteria from ACC/AHA 2002. Guideline Update for the Management of Patient's with Chronic Stable Angina, table 23. Noninvasive Risk Stratification.
--- NOTE | 2017-05-06 13:22 | DCNOTE ---
Patient seen this afternoon. No complaints. Feels "great" today. No recurrence of symptoms. On exam, irregular rhythm, no m/g/r, lungs CTA B/L, no w/r/r, abd soft, NTND, BS +, R knee with dressing in place, ecchymoses above and below. Echo and stress test unremarkable. Dr. Rand does not feel she needs the increased Xarelto or CCB. Will discharge home. Will need to f/u with PCP and Ortho as scheduled.
--- NOTE | 2017-05-07 09:29 | DS ---
CC: Dr. Adams; Dr. Peter; Dr. Rand of Cardiology DISCHARGE SUMMARY: DATE OF ADMISSION: 05/04/17 DATE OF DISCHARGE: 05/06/17 PCP: Dr. Adams PRINCIPAL DISCHARGE DIAGNOSIS: Atrial arrhythmia. DISCHARGE MEDICATION REGIMEN: 1. Lexapro 10 mg by mouth daily. 2. Donepezil 10 mg by mouth daily. 3. Colace 100 mg by mouth 2 times daily. 4. Calcium carbonate plus vitamin D 1 tablet by mouth daily. 5. Magnesium 400 mg by mouth daily. 6. Losartan 100 mg by mouth daily. 7. Xarelto 10 mg by mouth daily. 8. Omeprazole 20 mg by mouth daily. 9. Potassium chloride 30 mEq by mouth daily. 10. Amlodipine 10 mg by mouth daily. STUDIES DONE DURING HOSPITALIZATION: Chest x-ray. Impression: No active cardiopulmonary disease. CTA of the chest. No pulmonary arterial filling defect to suggest pulmonary embolism. Again notic ed multinodular goiter, parapelvic cyst versus right hydronephrosis. This is incompletely evaluated on the current exam, cholelithiasis. Right lower extremity Doppler. Impression: No right lower e xtremity DVT. Renal ultrasound. Impression: Parapelvic cyst on the right. No hydronephrosis. Tr ansthoracic echocardiogram. Conclusions: Global left ventricular wall motion and contractility wit hin normal limits. There is a normal left ventricular systolic function. The estimated ejection fr action is 55% to 60%. The assessment of diastolic function is nondiagnostic. The right ventricular global systolic function is normal. There is a mild aortic regurgitation, borderline aortic stenosi s present, mild mitral regurgitation, mild tricuspid regurgitation, evidence of [id number] pul monary hypertension. The pericardium appears normal. Nuclear cardiac stress test. Impression: No significant fixed or reversible perfusion defects. MARINE HABITAT RESOURCE SPECIALIST DURING HOSPITALIZATION: Dr. Jerald Rand, Cardiology. HPI AND HOSPITAL SUMMARY: Please see the full history and physical by Nav Redman NP for full de tails. Briefly, Ms. Marshall is an 82-year-old female with a past medical history of hypertension, hype rlipidemia, dementia, and recent right total knee replacement, who presented to the hospital with a few days of weakness, indigestion, urinary frequency, some lightheadedness. On admission to the [facility], she was noted to have hypokalemia, hypomagnesemia, and a mildly elevated troponin. UA did no t show any signs of infection neither did any of the imaging that she had. The patient did have an irregular heart rate and EKG was initially felt to be AFib; however, she does seemed to have P waves , and Dr. Rand feels that this is wandering pacemaker and multifocal atrial tachycardia. The patie nt's troponins were trended and they peaked at 0.08. She underwent an echocardiogram and a stress t est, which were normal. On the day of discharge, the remainder of her symptoms had completely resol jama. She was able to ambulate around the unit with no issues. While hospitalized, she was started on diltiazem and her Xarelto was increased; however, on discharge, she will go back down to her prev ious dose. We will not continue diltiazem. She will follow up with Dr. Adams and Dr. Peter as an outpatient. TIME SPENT: Total time spent on this discharge was 35 minutes. This is a summary of the hospitalization, please see the full medical record for further details. [id number]/[facility] #: [id number]
== END 2017-05-06 13:46 | disposition home or self-care (01) | DRG 310 ==
LOC: ED 08:19 → MEDTELE 11:25
PROVIDERS: ADMIT Hospitalist; ATTEND Hospitalist
DX: I49.8 Other specified cardiac arrhythmias (principal); I27.2 Other secondary pulmonary hypertension; F03.90 Unspecified dementia, unspecified severity, without behavioral disturbance, psychotic disturbance, mood disturbance, and anxiety; I10 Essential (primary) hypertension; E78.5 Hyperlipidemia, unspecified; Z96.651 Presence of right artificial knee joint; R74.8 Abnormal levels of other serum enzymes; E78.00 Pure hypercholesterolemia, unspecified; R35.0 Frequency of micturition; R53.1 Weakness; N94.89 Other specified conditions associated with female genital organs and menstrual cycle; I08.3 Combined rheumatic disorders of mitral, aortic and tricuspid valves; E04.2 Nontoxic multinodular goiter; E87.6 Hypokalemia; E83.42 Hypomagnesemia; I47.1 Supraventricular tachycardia; Z90.710 Acquired absence of both cervix and uterus; Z88.8 Allergy status to other drugs, medicaments and biological substances; Z82.49 Family history of ischemic heart disease and other diseases of the circulatory system; Z80.9 Family history of malignant neoplasm, unspecified; Z98.49 Cataract extraction status, unspecified eye; Z79.01 Long term (current) use of anticoagulants
CPT/HCPCS: 36415; 71010; 71275; 76775; 78452; 80048; 80053; 81003; 81015; 83605; 83735; 83880; 84100; 84443; 84484; 85025; 85610; 85730; 86850; 86870; 86880; 86900; 86901; 93005; 93017; 93306; 94760; A9270-GY; A9502; J0280; J2785; J3480; Q9967

== ENCOUNTER 2018-03-15 14:09 | Emergency (ER) | payer MEDICARE, BC ==
[2018-03-15 14:19] VITALS: BP 160/67
--- NOTE | 2018-03-15 18:42 | UC ---
Dima Olvera Nikita, scribed for Bright Fontenot MD on 03/15/18 at 1429 . Skin Complaint HPI - HPI Summary HPI Summary: This patient is an 82 year old F presenting to [facility] with a chief complaint of a bug bite since approximately 5 days ago. The CC is described as on the L inner thigh. The patient rates the pain 0/10 in severity. Symptoms aggravated by nothing. Symptoms alleviated by nothing. - History of Current Complaint Chief Complaint: UCSkin Time Seen by Provider: 03/15/18 14:23 Stated Complaint: INSECT BITE Hx Obtained From: Patient Onset/Duration: Sudden Onset, Lasting Hours, Lasting Days - approximately 5 days ago, Still Present Skin Exposure Onset/Duration: Hours Ago, Days Ago - approximately 5 days ago Current Severity: None Pain Intensity: 0 Pain Scale Used: 0-10 Numeric Location: Other - L inner thigh Aggravating Factor(s): Nothing Alleviating Factor(s): Nothing - Allergy/Home Medications Allergies/Adverse Reactions: Allergies Allergy/AdvReac Type Severity Reaction Status Date / Time LUIGI Inhibitors Allergy unk Verified 03/15/18 14:14 hydrochlorothiazide Allergy unk Verified 03/15/18 14:15 [From Dyazide] pravastatin Allergy int Verified 03/15/18 14:16 triamterene [From Dyazide] Allergy unk Verified 03/15/18 14:15 Review of Systems Constitutional: Other - denies fever Skin: Other - big bite on L inner thigh All Other Systems Reviewed And Are Negative: Yes PMH/Surg Hx/FS Hx/Imm Hx Endocrine History: Other Other Endocrine History: No DM Cardiovascular History: Hypertension Respiratory History: Other Other Respiratory History: No COPD, asthma - Surgical History Surgical History: Yes Surgery Procedure, Year, and Place: hysterectomy. cataract surgery. right knee replacement, 04/29/17, [place] - Family History Known Family History: Positive: Cardiac Disease - Social History Alcohol Use: None Alcohol Amount: glass of wine Substance Use Type: None Smoking Status (MU): Never Smoked Tobacco - Immunization History Most Recent Influenza Vaccination: fall 2015 Most Recent Pneumonia Vaccination: 04/25/2015 Physical Exam - Summary Physical Exam Summary: VITAL SIGNS: Reviewed. GENERAL: ~Patient is a well-developed and nourished FEMALE who is lying comfortable in the stretcher. ~Patient is not in any acute respiratory distress. HEAD AND FACE: Normocephalic EYES: PERRLA, EOMI x 2. EARS: Hearing grossly intact. MOUTH: Oropharynx within normal limits. NECK: Supple, trachea is midline, no adenopathy, no JVD, no carotid bruit. CHEST: Symmetric, no tenderness at palpation LUNGS: Clear to auscultation bilaterally. No wheezing or crackles. CVS: Regular rate and rhythm, S1 and S2 present, no murmurs or gallops appreciated. ABDOMEN: Soft, non-tender. Bowel sounds are normal. No abdominal abnormal pulsations. EXTREMITIES: Full ROM in all major joints, no edema, no cyanosis or clubbing. NEURO: Alert and oriented x 3. No acute neurological deficits. Speech is normal and follows commands. SKIN: Dry and warm. Tick in L thigh that has been there for approximately 5 days. Triage Information Reviewed: Yes Vital Signs: Initial Vital Signs Temp 97.2 F 03/15/18 14:16 Pulse 64 03/15/18 14:16 Resp 16 03/15/18 14:16 BP 160/67 03/15/18 14:16 Pulse Ox 99 03/15/18 14:16 Vital Signs Reviewed: Yes Course/Dx - Course Course Of Treatment: This patient is an 82 year old F presenting to [facility] with a chief complaint of a bug bite since approximately 5 days ago. I will give the patient doxycycline for 21 days, since it seems the patient had the tick for more than 5 days, to decrease risk of Lyme disease. She will follow up with her PCP in the next couple days. The pt is hemodynamically stable, alert and oriented x3. Patient was instructed to return to the urgent care or go to ER immediately if any of the symptoms return or worsens. Plan of care was discussed with the patient, and patient understands and agrees. All questions were answered to patient satisfaction. There were no further complaints or concerns. - Differential Diagnoses - Skin Complaint Differential Diagnoses: Other - tick bite, lyme disease - Diagnoses Provider Diagnoses: tick bite Discharge - Sign-Out/Discharge Documenting (check all that apply): Discharge/Admit/Transfer - Discharge Plan Condition: Stable Disposition: HOME Prescriptions: DOXYcycline CAP(*) [DOXYcycline 100MG CAP(*)] 100 mg PO BID #42 cap Patient Education Materials: Lyme Disease (ED), Tick Bite (ED) Referrals: Lilli Adams MD [Primary Care Provider] - 3 Days Additional Instructions: RETURN TO URGENT CARE OR THE ED FOR ANY WORSENING OR NEW SYMPTOMS. - Billing Disposition and Condition Condition: STABLE Disposition: HOME The documentation as recorded by the Dima green Nikita accurately reflects the service I personally performed and the decisions made by me, Bright Fontenot MD.
== END 2018-03-15 14:42 | disposition home or self-care (01) ==
LOC: UCEAST 14:09
DX: S70.362A Insect bite (nonvenomous), left thigh, initial encounter (principal); W57.XXXA Bitten or stung by nonvenomous insect and other nonvenomous arthropods, initial encounter; Y93.9 Activity, unspecified; Y92.9 Unspecified place or not applicable; I10 Essential (primary) hypertension; Z96.651 Presence of right artificial knee joint; Z88.8 Allergy status to other drugs, medicaments and biological substances
CPT/HCPCS: 99202; G0463